=== PATIENT | female | born 2000 | race Caucasian/White ===

== ENCOUNTER → 2023-03-31 11:05 | Outpatient (BNVA) | payer SELFPAY | PROVIDERS: PCP Nurse Practitioner Family; Visit Provider Nurse Practitioner Family | DX: N92.6 Irregular menstruation, unspecified (principal) | CPT/HCPCS: 81025 ==

== ENCOUNTER 2023-10-04 13:17 | Emergency (ER) | payer OTHER, MEDICAID, SELFPAY ==
[2023-10-04 13:34] VITALS: BP 159/104; PULSE 92; RESP 16; TEMP 36.6; O2SAT 98; BMI 50.2
--- NOTE | 2023-10-04 13:53 | XRR_ITS ---
PROCEDURE INFORMATION: Exam: XR Right Finger(s) Exam date and time: 10/04/2023 2:28 PM Age: 22 years old Clinical indication: Injury or trauma; Patient HX: RT 2nd digit pain/swelling after jamming injury TECHNIQUE: Imaging protocol: Radiologic exam of the right fingers. Views: Minimum 2 views. COMPARISON: No relevant prior studies available. FINDINGS: Bones/joints: Normal. Soft tissues: Unremarkable. XR/XR finger RT min 2V [id number] IMPRESSION: No acute findings.
--- NOTE | 2023-10-04 16:26 | W.ED.EXTPRO ---
HPI - Extremity Problem General: Chief complaint: Extremity Injury, Lower Stated complaint: right pointer finger pain Time Seen by Provider: 10/04/23 16:26 History of Present Illness: 22-year-old female presents emerged part with complaints of right index finger. She states she accidentally fell forward hitting her hand onto the countertop earlier today. She states that it started swelling and bruising and is throbbing and having 4 out of 10 pain. She denies numbness or tingling to the extremity. She denies any other injuries. She states she is approximately 8 months , but is not having any other difficulties.. Review of Systems Musc: Reports: extremity pain and extremity swelling PFS ED PFSH: Family History Other Asthma Diabetes Hyperlipidemia Hypertension Social History Smoking and tobacco/nicotine status: former use of tobacco/nicotine Alcohol intake: never Physical Exam Narrative: EXAM NARRATIVE: Constitutional: the patient appears well nourished and of normal development. Vital signs as documented. No acute distress at present. Alert and oriented-to person, place, time and situation. Head, eyes, ears, nose, mouth, throat: Normocephalic, atraumatic. Pupils-equal, round, reactive to light. No scleral icterus. Normal-appearing external ears. Normal appearing nasal turbinates, no drainage. Neck: Supple, trachea is midline, no lymphadenopathy. Lungs: clear to auscultation to all lung de le[place]. Symmetrical rise and fall of chest, no obvious signs of increased work of breathing at present. Cardiac: Regular rate and rhythm, positive S1, S2. No murmurs, rubs or gallops that I can appreciate Abdomen: Soft, non-tender to palpation, normal active bowel sounds to all quadrants. No palpable masses, no organomegaly and abdominal bruits. Extremities: 2+ pulses in the upper extremities that are equal bilaterally, 2+ pulses in the lower extremities that are equal bilaterally. Non-edematous. Moves all extremities well, sensation to all extremities are noted. Right index finger with mild bruising noted there is some mild swelling noted. Patient is able to flex and extend at with minimal pain. Capillary refills less than 3 seconds. Skin: Warm, dry, intact. Course Vital Signs: Vital signs: Vital Signs Temperature 97.8 F 10/04/23 13:34 Pulse Rate 92 10/04/23 13:34 Respiratory Rate 16 10/04/23 13:34 Blood Pressure 159/104 10/04/23 13:34 Pulse Oximetry 98 10/04/23 13:34 Oxygen Delivery Me thod Room Air 10/04/23 13:34 MDM - Extremity (Nontraumatic) Medical Decision Making 22-year-old female presents with right index finger pain after jamming it into a countertop. I will provide her with radiographic examination and have advised her regarding rest ice compression elevation. Medical Records I reviewed the patient's medical records. Lab Data Radiology Impressions Finger X-Ray 10/04/23 13:53 IMPRESSION: No acute findings. All radiology interpretation(s) finalized by discharge Discharge Plan Discharge Patient Disposition: Home Clinical Impression: Finger sprain Condition: Stable Prescriptions: No Action No Known Home Medications Discharge Orders: Discharge ED (Routine); Ordered 10/04/23 Ordered By: Ty Worthy Referrals: Nga Brandon NP [Primary Care Provider] - Discharge Diet: Advance as tolerated Discharge Activity: Resume usual activity Patient Instructions: Opioid Safety, Pain Management Activity Restrictions/Additional Instructions: Activity Restrictions/Additional Instructions: Thank you for choosing [facility] [place] for your healthcare needs today. Please realize that you were seen in the Emergency Department and that we are providing you with an emergency medical screening exam and this may not be a complete and all inclusive of all the testing and or medical work-up that you may need to determine your ailment or severity of your illness. It is very important that you follow-up as instructed with your Primary care provider or Specialist for additional evaluation and to discuss your medical treatment plan. You may return to the Emergency Department should you have concerns or if your condition changes or worsens in any way. Coding Level of Care Code ED [employer] for [employer] Richard
== END 2023-10-04 16:35 | disposition home or self-care (01) ==
PROVIDERS: Emergency Provider Internal Medicine; PCP Nurse Practitioner Family
DX: S63.610A Unspecified sprain of right index finger, initial encounter (principal); Z87.891 Personal history of nicotine dependence; W18.39XA Other fall on same level, initial encounter
CPT/HCPCS: 73140; 99283

== ENCOUNTER 2023-10-13 13:04 | Outpatient (CLI) | payer OTHER, MEDICAID, SELFPAY ==
[2023-10-13 13:20] VITALS: BP 167/76; PULSE 90; TEMP 35.7
[2023-10-13 13:23] VITALS: RESP 17
[2023-10-13 13:25] VITALS: BMI 53.6
[2023-10-13 13:34] VITALS: BP 153/73; PULSE 87; RESP 17
[2023-10-13 13:49] VITALS: BP 125/71; PULSE 85
[2023-10-13 13:53] VITALS: BP 125/71; PULSE 85
== END 2023-10-13 13:53 | disposition home or self-care (01) ==
LOC: OPOB 13:07 → OBGYN 13:08
PROVIDERS: PCP Nurse Practitioner Family; Visit Provider Family Medicine
DX: O16.9 Unspecified maternal hypertension, unspecified trimester (principal); Z3A.00 Weeks of gestation of pregnancy not specified
CPT/HCPCS: 59025; 99211

== ENCOUNTER 2023-10-16 14:32 | Outpatient (CLI) | payer OTHER, MEDICAID, SELFPAY ==
[2023-10-16 14:32] VITALS: RESP 17; BMI 53.5
[2023-10-16 14:44] VITALS: BP 127/77; PULSE 103
[2023-10-16 14:59] VITALS: BP 135/88; PULSE 85
== END 2023-10-16 15:10 | disposition home or self-care (01) ==
LOC: OPOB 14:33 → OBGYN 14:34
PROVIDERS: PCP Nurse Practitioner Family; Visit Provider Family Medicine
DX: O26.899 Other specified pregnancy related conditions, unspecified trimester (principal); Z3A.00 Weeks of gestation of pregnancy not specified
CPT/HCPCS: 59025

== ENCOUNTER 2023-10-20 14:27 | Outpatient (CLI) | payer OTHER, MEDICAID, SELFPAY ==
[2023-10-20 14:38] VITALS: BP 169/95; PULSE 86
[2023-10-20 14:54] VITALS: BP 163/89; PULSE 82
[2023-10-20 15:01] VITALS: BP 158/82; PULSE 93
[2023-10-20 15:08] VITALS: BP 153/67; PULSE 86
[2023-10-20 15:23] VITALS: BP 152/71; PULSE 96
== END 2023-10-20 15:30 | disposition home or self-care (01) ==
LOC: OPOB 14:27 → OBGYN 14:28
PROVIDERS: PCP Nurse Practitioner Family; Visit Provider Family Medicine
DX: O16.9 Unspecified maternal hypertension, unspecified trimester (principal); Z3A.00 Weeks of gestation of pregnancy not specified
CPT/HCPCS: 59025

== ENCOUNTER 2023-10-23 14:08 | Outpatient (CLI) | payer OTHER, MEDICAID, SELFPAY ==
[2023-10-23 14:16] VITALS: BP 176/91; PULSE 93
[2023-10-23 14:30] VITALS: BP 171/89; PULSE 95
[2023-10-23 14:46] VITALS: BP 166/88; PULSE 98
[2023-10-23 15:09] LABS: Basophils % 0.2 %; Eosinophils # 0.1 10^3/uL (0.0-0.8); Eosinophils % 0.8 %; Hematocrit 40.4 % (36-47); Lymphocytes # 1.8 10^3/uL (0.8-4.8); Lymphocytes % 15.8 %; Mean Corpuscular HGB Conc 32.2 g/dL (30-55); Mean Corpuscular Hemoglobin 28.7 pg (27-33); Mean Corpuscular Volume 89.2 fl (85-98); Mean Platelet Volume 9.9 fL (7.4-10.4); Monocytes # 0.7 10^3/uL (0.2-0.9); Monocytes % 6.1 %; Neutrophils # 8.62 10^3/uL (1.8-7.7); Neutrophils % 76.7 %; Nucleated Red Blood Cells % 0 %; Platelet Count 330 10^3/cmm (157-399); Red Blood Count 4.53 10^6/uL (3.85-5.65); White Blood Count 11.24 10^3/uL (3.29-11.43)
[2023-10-23 15:20] VITALS: BMI 53.6
[2023-10-23 15:26] LABS: Alanine Aminotransferase 11 U/L (0-33); Albumin Level 3.6 g/dL (3.5-5.2); Alkaline Phosphatase 64 U/L (35-105); Blood Urea Nitrogen 10 mg/dL (6-20); Carbon Dioxide 23 mmol/L (22-29); Chloride 101 mmol/L (98-107); Globulin 3.3 g/dL (1.3-4.6); Glomerular Filtration Rate 126.2 mL/min (90-130); Glucose 83 mg/dL (65-115); Osmolality Calculated 278 mOsm/kg (285-295); Sodium 135 mmol/L (136-145); Total Bilirubin 0.2 mg/dL (0.15-1.2); Total Protein 6.9 g/dL (6.6-8.7); Uric Acid 4.6 mg/dL (2.4-5.7)
[2023-10-23 15:30] VITALS: BP 147/89; PULSE 97
[2023-10-23 15:32] LABS: Anion Gap 15.4 (5-19); Aspartate Amino Transferase 19 U/L (0-32); Potassium 4.4 mmol/L (3.5-5.1)
[2023-10-23 15:35] LABS: Urine Creatinine 75 mg/dL (28-217); Urine Protein Random 6 mg/dL
[2023-10-23 15:38] LABS: UPRO/UCREAT Ratio 0.08 mg/mg CR
[2023-10-23 15:45] VITALS: BP 154/99; PULSE 94
[2023-10-23 15:52] LABS: Add Urine Microscopic? YES; Bilirubin Urine Neg (Negative); Blood Urine Neg (Negative); Glucose Urine UA Norm (Normal); Ketones Urine Negative (Negative); Leukocyte Esterase Urine 1+ (Negative); Nitrate Urine Negative (Negative); Protein Urine Neg (Negative); Urine Appearance Hazy (CLEAR); Urine Color Yellow (Yellow); Urobilinogen Urine Norm (Negative); pH Urine 7 (5-7)
[2023-10-23 15:53] LABS: Add Urine Culture? No; Bacteria Urine 2+ /hpf; RBC Urine 0-4 /hpf (0-2); Squamous Epithelial Cell Urine 15-25 /hpf (0-5)
[2023-10-23 16:01] VITALS: BP 160/81; PULSE 97
== END 2023-10-23 16:17 | disposition home or self-care (01) ==
LOC: OPOB 14:09 → OBGYN 14:09
PROVIDERS: PCP Nurse Practitioner Family; Visit Provider Family Medicine
DX: O16.9 Unspecified maternal hypertension, unspecified trimester (principal); Z3A.00 Weeks of gestation of pregnancy not specified
CPT/HCPCS: 36415; 59025; 80053; 81001; 82570; 84156; 84550; 85025; 99211

== ENCOUNTER 2023-10-26 12:13 | Outpatient (CLI) | payer OTHER, MEDICAID, SELFPAY ==
[2023-10-26 12:29] VITALS: BP 184/85; PULSE 100
[2023-10-26 12:50] VITALS: BP 199/95; PULSE 96
[2023-10-26 13:59] VITALS: BP 182/89; PULSE 97
[2023-10-26 14:21] VITALS: BP 183/115; PULSE 91
[2023-10-26] MEDS: metoprolol tartrate 25 mg Tablet 100 MG PO (14:22)
[2023-10-26 15:09] VITALS: BP 143/94; PULSE 79
== END 2023-10-26 16:10 | disposition home or self-care (01) ==
LOC: OPOB 12:14 → OBGYN 12:19
PROVIDERS: PCP Nurse Practitioner Family; Visit Provider Family Medicine
DX: O26.899 Other specified pregnancy related conditions, unspecified trimester (principal); Z3A.00 Weeks of gestation of pregnancy not specified
CPT/HCPCS: 59025

== ENCOUNTER 2023-10-26 23:42 | Outpatient (CLI) | payer OTHER, MEDICAID, SELFPAY ==
[2023-10-26 23:53] VITALS: BP 143/87; PULSE 95
[2023-10-27] VITALS: BMI 54.8
[2023-10-27 00:04] VITALS: TEMP 35.9
[2023-10-27 00:05] VITALS: BP 130/64; PULSE 83
== END 2023-10-27 00:23 | disposition home or self-care (01) ==
LOC: OPOB 23:43 → OBGYN 23:44
PROVIDERS: PCP Nurse Practitioner Family; Visit Provider Family Medicine
DX: O16.9 Unspecified maternal hypertension, unspecified trimester (principal); Z3A.00 Weeks of gestation of pregnancy not specified
CPT/HCPCS: 59025; 99211

== ENCOUNTER 2023-10-30 13:50 | Outpatient (CLI) | payer MEDICAID, SELFPAY ==
[2023-10-30 14:03] VITALS: BP 145/87; PULSE 107
[2023-10-30 14:19] VITALS: BP 153/74; PULSE 93
[2023-10-30 14:20] VITALS: BMI 54.6
== END 2023-10-30 14:27 | disposition home or self-care (01) ==
LOC: OPOB 13:53 → OBGYN 13:53
PROVIDERS: PCP Nurse Practitioner Family; Visit Provider Family Medicine
DX: O16.9 Unspecified maternal hypertension, unspecified trimester (principal); Z3A.00 Weeks of gestation of pregnancy not specified
CPT/HCPCS: 59025; 99211

== ENCOUNTER 2023-11-03 14:23 | Outpatient (CLI) | payer MEDICAID, SELFPAY ==
[2023-11-03 14:49] VITALS: BP 175/91; PULSE 106
[2023-11-03 15:08] VITALS: BP 139/81; PULSE 96
[2023-11-03 15:15] LABS: Add Urine Microscopic? NO; Charge for UA Resulting for Rev
[2023-11-03 15:21] LABS: Basophils % 0.2 %; Eosinophils # 0.1 10^3/uL (0.0-0.8); Eosinophils % 1.3 %; Hematocrit 36.1 % (36-47); Lymphocytes # 1.7 10^3/uL (0.8-4.8); Lymphocytes % 16.9 %; Mean Platelet Volume 9.8 fL (7.4-10.4); Monocytes # 0.5 10^3/uL (0.2-0.9); Monocytes % 5.1 %; Neutrophils # 7.83 10^3/uL (1.8-7.7); Nucleated Red Blood Cells % 0 %; Platelet Count 317 10^3/cmm (157-399); White Blood Count 10.29 10^3/uL (3.29-11.43)
[2023-11-03 15:23] LABS: Urine Appearance Clear (CLEAR); Urine Color Light yellow (Yellow)
[2023-11-03 15:24] LABS: Bilirubin Urine Neg (Negative); Blood Urine Neg (Negative); Glucose Urine UA Norm (Normal); Ketones Urine Negative (Negative); Leukocyte Esterase Urine Negative (Negative); Nitrate Urine Negative (Negative); Protein Urine Neg (Negative); Specific Gravity, Urine 1.015 (1.005-1.030); Urobilinogen Urine Norm (Negative); pH Urine 6 (5-7)
[2023-11-03 15:28] VITALS: BP 134/75; PULSE 90
[2023-11-03 15:41] LABS: Alanine Aminotransferase 6 U/L (0-33); Albumin Level 3.4 g/dL (3.5-5.2); Alkaline Phosphatase 72 U/L (35-105); Anion Gap 16.3 (5-19); Aspartate Amino Transferase 11 U/L (0-32); Blood Urea Nitrogen 7 mg/dL (6-20); Calcium 8.6 mg/dL (8.5-10.5); Carbon Dioxide 20 mmol/L (22-29); Chloride 103 mmol/L (98-107); Globulin 3.1 g/dL (1.3-4.6); Glomerular Filtration Rate 155.7 mL/min (90-130); Glucose 105 mg/dL (65-115); Osmolality Calculated 278 mOsm/kg (285-295); Potassium 4.3 mmol/L (3.5-5.1); Sodium 135 mmol/L (136-145); Total Bilirubin 0.2 mg/dL (0.15-1.2); Total Protein 6.5 g/dL (6.6-8.7); Uric Acid 4.7 mg/dL (2.4-5.7)
[2023-11-03 15:42] LABS: Urine Creatinine 52 mg/dL (28-217); Urine Protein Random 5 mg/dL
[2023-11-03 15:48] VITALS: BP 131/75; PULSE 84
[2023-11-03 16:10] VITALS: BP 131/75; PULSE 84
== END 2023-11-03 16:10 | disposition home or self-care (01) ==
LOC: OPOB 14:26 → OBGYN 14:33
PROVIDERS: PCP Nurse Practitioner Family; Visit Provider Family Medicine
DX: O16.9 Unspecified maternal hypertension, unspecified trimester (principal); Z3A.00 Weeks of gestation of pregnancy not specified
CPT/HCPCS: 36415; 59025; 80053; 81003; 82570; 84156; 84550; 85025; 99211

== ENCOUNTER 2023-11-06 13:43 | Outpatient (CLI) | payer MEDICAID, SELFPAY ==
[2023-11-06] VITALS (11 sets, daily range): BP systolic 134–217; BP diastolic 80–104; PULSE 84–107; RESP 18; BMI 54.5
[2023-11-06 14:50] LABS: Add Urine Microscopic? NO; Charge for UA Resulting for Rev
[2023-11-06 15:12] LABS: Basophils % 0.3 %; Eosinophils # 0.1 10^3/uL (0.0-0.8); Eosinophils % 1.1 %; Hematocrit 36.8 % (36-47); Lymphocytes # 1.8 10^3/uL (0.8-4.8); Lymphocytes % 17.2 %; Mean Corpuscular HGB Conc 32.6 g/dL (30-55); Mean Corpuscular Hemoglobin 28.6 pg (27-33); Mean Corpuscular Volume 87.8 fl (85-98); Mean Platelet Volume 10.1 fL (7.4-10.4); Monocytes # 0.6 10^3/uL (0.2-0.9); Monocytes % 5.2 %; Neutrophils # 8.11 10^3/uL (1.8-7.7); Neutrophils % 75.6 %; Nucleated Red Blood Cells % 0 %; Platelet Count 330 10^3/cmm (157-399); Red Blood Count 4.19 10^6/uL (3.85-5.65); Red Cell Distribution Width 13.1 % (12.1-15.1); White Blood Count 10.72 10^3/uL (3.29-11.43)
[2023-11-06 15:26] LABS: Urine Appearance Clear (CLEAR); Urine Color Yellow (Yellow)
[2023-11-06 15:27] LABS: Bilirubin Urine Neg (Negative); Blood Urine Neg (Negative); Glucose Urine UA Norm (Normal); Ketones Urine Negative (Negative); Leukocyte Esterase Urine Negative (Negative); Nitrate Urine Negative (Negative); Protein Urine Neg (Negative); Urobilinogen Urine Norm (Negative); pH Urine 7 (5-7)
[2023-11-06 15:36] LABS: Alanine Aminotransferase 10 U/L (0-33); Albumin Level 3.5 g/dL (3.5-5.2); Alkaline Phosphatase 76 U/L (35-105); Anion Gap 16.5 (5-19); Aspartate Amino Transferase 13 U/L (0-32); Blood Urea Nitrogen 8 mg/dL (6-20); Calcium 9.4 mg/dL (8.5-10.5); Carbon Dioxide 22 mmol/L (22-29); Chloride 103 mmol/L (98-107); Globulin 3.1 g/dL (1.3-4.6); Glomerular Filtration Rate 155.7 mL/min (90-130); Glucose 87 mg/dL (65-115); Osmolality Calculated 282 mOsm/kg (285-295); Potassium 4.5 mmol/L (3.5-5.1); Sodium 137 mmol/L (136-145); Total Bilirubin 0.2 mg/dL (0.15-1.2); Total Protein 6.6 g/dL (6.6-8.7); Uric Acid 4.9 mg/dL (2.4-5.7)
[2023-11-06 16:08] LABS: UPRO/UCREAT Ratio 0.13 mg/mg CR; Urine Creatinine 77 mg/dL (28-217); Urine Protein Random 10 mg/dL
== END 2023-11-06 16:55 | disposition home or self-care (01) ==
LOC: OPOB 13:46 → OBGYN 13:47
PROVIDERS: Family Medicine; PCP Nurse Practitioner Family; Visit Provider Family Medicine
DX: O16.9 Unspecified maternal hypertension, unspecified trimester (principal); Z3A.00 Weeks of gestation of pregnancy not specified
CPT/HCPCS: 36415; 59025; 80053; 81003; 82570; 84156; 84550; 85025; 99211

== ENCOUNTER 2023-11-09 13:30 | Outpatient (CLI) | payer MEDICAID, SELFPAY ==
[2023-11-09 13:42] VITALS: RESP 16
[2023-11-09 13:43] VITALS: BP 148/84; PULSE 91
[2023-11-09 13:59] VITALS: BP 167/89; PULSE 95; BMI 53.2
[2023-11-09 14:03] VITALS: RESP 16
== END 2023-11-09 14:05 ==
LOC: OPOB 13:33 → OBGYN 13:33
PROVIDERS: PCP Nurse Practitioner Family; Visit Provider Family Medicine
DX: O16.9 Unspecified maternal hypertension, unspecified trimester (principal); Z3A.00 Weeks of gestation of pregnancy not specified
CPT/HCPCS: 59025

== ENCOUNTER 2023-11-11 21:06 | Inpatient (IN) | payer MEDICAID, SELFPAY ==
[2023-11-11 20:55] VITALS: BP 142/70; PULSE 103
[2023-11-11 20:56] VITALS: TEMP 36
[2023-11-11 21:13] VITALS: BMI 53.4
[2023-11-11 21:19] LABS: Basophils % 0.2 %; Eosinophils # 0.1 10^3/uL (0.0-0.8); Hematocrit 35.2 % (36-47); Lymphocytes # 2.4 10^3/uL (0.8-4.8); Lymphocytes % 18.1 %; Mean Corpuscular Hemoglobin 28.6 pg (27-33); Mean Corpuscular Volume 86.9 fl (85-98); Mean Platelet Volume 10.3 fL (7.4-10.4); Monocytes # 0.6 10^3/uL (0.2-0.9); Monocytes % 4.6 %; Neutrophils # 9.84 10^3/uL (1.8-7.7); Neutrophils % 75.6 %; Nucleated Red Blood Cells % 0 %; Platelet Count 302 10^3/cmm (157-399); Red Blood Count 4.05 10^6/uL (3.85-5.65); White Blood Count 13.03 10^3/uL (3.29-11.43)
[2023-11-11 22:00] VITALS: BP 141/86; PULSE 95
[2023-11-11] MEDS: miSOPROStol 100 mcg tablet 25 MCG VAGINAL (22:04)
[2023-11-11 22:30] VITALS: BP 137/66; PULSE 83
[2023-11-11 23:01] VITALS: BP 132/65; PULSE 82
[2023-11-12] VITALS (61 sets, daily range): BP systolic 128–186; BP diastolic 66–124; PULSE 77–118; TEMP 35.7–36.4; O2SAT 97–98
[2023-11-12] MEDS: dextrose 5%-lactated ringers 1,000 ML 999 ML IV ×3 (05:05→18:56)
[2023-11-12] MEDS: miSOPROStol 100 mcg tablet 25 MCG VAGINAL (07:14)
[2023-11-12] MEDS: oxytocin 30 UNIT/500 ML BAG IV (11:45)
--- NOTE | 2023-11-12 13:46 | P.ANESASSM_ITS ---
Pre-Anesthetic Assessment Height/Weight: Height 1.78 m Weight 168.736 kg Temp Pulse BP Pulse Ox O2 Del Method 96.4 F L 92 143/88 97 Room Air 11/12/23 11:17 11/12/23 13:33 11/12/23 13:33 11/12/23 05:03 11/12/23 02:48 Epidural Familial anesthetic complications: None Was Beta Rachna taken within 24 hours: N/A Was Clonidine taken within 24 hours: N/A Social No alcohol and No tobacco Exam alert, oriented x 3, clear to auscultation bilaterally and regular rate & rhythm Airway Submandibular: within normal limits (TMJ) Cervical ROM: within normal limits Mallampati: Class III Dentition: full History/ROS No significant history except as noted and No significant complaints Pulmonary Sleep Apnea CV/HEM Hypertension None reported Hepatic None reported GI Gastroesophageal Reflux Disease Metabolic Morbid Obesity Musc/skel Lower Back Pain Sciatica Neuropsych Headache Anesthetic Plan ASA status: 3 Anesthesia: Anesthesia Evaluation, General and Regional (specify below) (Epidural) Risk of > 500 ml blood loss (7ml/kg in children): No Medications/Allergies Home Medications Medication Instructions Recorded Confirmed Last Taken Type vits no.124-ferrous fum 1 tab PO DAILY 10/13/23 11/09/23 11/06/23 07:00 History 27 mg iron-folic acid 800 mcg tablet ( Vitamin) nifedipine 30 mg tablet,extended 30 mg PO DAILY 10/26/23 11/09/23 11/06/23 07:00 History release 24 hr Allergies Allergy/AdvReac Type Severity Reaction Status Date / Time latex Allergy Unknown Verified 11/06/23 15:12 Current Medications Generic Name Dose Route Start Last Admin Trade Name Freq PRN Reason Stop Dose Admin Dextrose/Lactated Ringer's 1,000 mls @ 125 mls/hr 11/11/23 21:15 11/12/23 11:47 Dextrose 5%-Lactated Ringers IV 999 mls/hr .Q8H LADARIUS Administration Oxytocin 30 unit in 500 mls @ 1 mls/hr 11/12/23 11:30 11/12/23 12:45 Pitocin IV 10 milliunit/min .Q24H LADARIUS 10 mls/hr Titration Protocol 1 MILLIUNIT/MIN PFSH Anesthesia Family History Other Asthma Diabetes Hyperlipidemia Hypertension Social History Smoking and tobacco/nicotine status: former use of tobacco/nicotine Alcohol intake: never Female Reproductive History : 1 Data Anesthesia 11/11/23 20:30 Short CBC 11/11/23 Range/Units 20:30 WBC 13.03 H (3.29-11.43) 10^3/uL Hgb 11.60 (11.27-16.99) g/dL Hct 35.2 L (36-47) % MCV 86.9 (85-98) fl Plt Count 302 (157-399) 10^3/cmm Neut % (Auto) 75.6 % Neut # (Auto) 9.84 H (1.8-7.7) 10^3/uL Blood Bank 11/11/23 20:30 Blood Type A Positive Rho(D) Type Rh positive Antibody Screen Negative Cardiac Studies: 2 No Data to Display
[2023-11-12] MEDS: lactated ringers 1,000 ML 999 ML IV (20:00)
[2023-11-12] MEDS: ROPivacaine syringe 100 MG/50 ML SYRINGE 10 MG EPIDURAL (22:00)
--- NOTE | 2023-11-12 22:05 | ANES.PROC ---
Anesthesia Procedures Procedure/Date: 11/12/23 Epidural: Time Out Performed: Yes Consents Signed: Procedure Consent and NPO Consent Consent: requested by attending/covering physician, from patient, risks and benefits reviewed and patient agrees to proceed Lumbar Level: L3-L4 Epidural position: sitting Epidural procedure: sterile prep of area (betadine), 1% lidocaine to numb the area (3 mLs), neg for paresthesia, test dose given, 1.5% xylocaine 1:200k epi (3 mL/2 mL), 0.2% Ropivacaine bolus ml (5 mLs), placed PCEA, no systemic response, sterile dressing applied, L.U.D. no apparent complications and 0.2% Ropiavacaine @ mls/hr (10 mLs/hr) Additional Comments: Attempt x3. FATOUMATA 7cm, catheter threaded to 12.5cm. 100mcg fentanyl given via epidural
--- NOTE | 2023-11-12 23:52 | PC.NURSE ---
This nurse began shift at 1900. Pitocin running at 18 mls/hr at this time.
[2023-11-13] VITALS (40 sets, daily range): BP systolic 116–185; BP diastolic 66–111; PULSE 78–125; RESP 16; TEMP 36.7–36.9; O2SAT 97–98
[2023-11-13] MEDS: ROPivacaine syringe 100 MG/50 ML SYRINGE 10 MG EPIDURAL ×2 (01:32→05:07)
[2023-11-13] MEDS: dextrose 5%-lactated ringers 1,000 ML 125 ML IV (04:09)
[2023-11-13] MEDS: oxytocin 30 UNIT/500 ML BAG 600 UNIT IV (06:14)
--- NOTE | 2023-11-13 06:35 | PM.OPHPUD ---
Labor & Delivery H&P Update Date of Procedure: November 12, 2023 Date H&P Performed: 11/10/23 Admission Diagnosis: IUP at 39w2d CHTN suspected macrosomia Planned procedure: Induction of labor and delivery
--- NOTE | 2023-11-13 06:36 | P.PCNOB_ITS ---
Delivery Note: Date of delivery: November 13, 2023 Estimated blood loss (mL): 300 Pre-Delivery Course: The patient had routine care at [facility]. Her was complicated by likely pre-existing nontreated chronic hypertension as well as whitecoat syndrome and morbid obesity. Her blood pressures were intermittently 140s over 90s that she did not require any antihypertensive medication until the third trimester. She was monitored closely with twice weekly NSTs and growth ultrasounds. Her 36-week ultrasound estimated weight at greater than the 99th percentile. She had a repeat ultrasound around 39 weeks with estimated weight around 4000 g. labs: Blood type a positive antibody negative, hepatitis B nonreactive, hepatitis C nonreactive, HIV nonreactive, rubella nonimmune, GC chlamydia negative, RPR nonreactive, UDS negative, she passed her glucose tolerance test, she was GBS negative. Delivery: This is a 23-year-old G1, P0 at 39 weeks 3 days gestation who was admitted for induction secondary to chronic hypertension. Her cervix was not favorable so she was started on Cytotec and received 2 doses. She then underwent artificial rupture of membranes with clear fluids. She received an epidural for pain management. She took a a while to thin out but once her cervix was nice and then she dilated abruptly. She only had to push through about 3 contractions to have a normal spontaneous vaginal delivery of a viable male weight 3510 g, 7 pounds 12 ounces, Apgars 9 and 9 over an intact perineum. The was suctioned at delivery and placed on the mother's chest. The cord was clamped and cut. There was a true knot in the cord. The placenta was delivered grossly intact and normal to inspection. There was a second-degree perineal laceration that was sutured using 3-0 chromic. Mother and infant were doing well after delivery. Estimated blood loss 300 mL Coding Level of Care Code Acute Code for Chg Fwd
[2023-11-13] MEDS: lanolin oint 7 gm 1 APPLIC TOPICAL (08:20)
[2023-11-13] MEDS: docusate sodium 100 mg Capsule PO ×2 (08:20→16:08)
[2023-11-13] MEDS: prenatal vitamin Capsule 1 CAP PO (08:20)
[2023-11-13] MEDS: ibuprofen 800 mg tablet PO ×3 (08:20→22:05)
[2023-11-13] MEDS: benzocaine-menthol 78 gm Canister 1 SPRAY TOPICAL (08:21)
[2023-11-13] MEDS: NIFEdipine ER (24 hr) 30 mg Tablet PO (12:19)
[2023-11-13 18:43] LABS: Hematocrit 33.1 % (36-47); Mean Corpuscular HGB Conc 33.2 g/dL (30-55); Mean Corpuscular Hemoglobin 28.9 pg (27-33); Mean Corpuscular Volume 87.1 fl (85-98); Platelet Count 267 10^3/cmm (157-399); Red Cell Distribution Width 13.2 % (12.1-15.1); White Blood Count 15.11 10^3/uL (3.29-11.43)
[2023-11-14 04:40] VITALS: BP 149/92; PULSE 93; RESP 16; TEMP 36.8; O2SAT 98
--- NOTE | 2023-11-14 08:53 | ANE.PACU2 ---
Inpatient post-anesthesia follow up: Airway intact: Yes Vital signs: Temperature 98.2 F Pulse Rate 93 Respiratory Rate 16 Blood Pressure 149/92 Pulse Oximetry 98 Oxygen Delivery Me thod Room Air Oxygen Flow Rate Fraction of Inspir ed Oxygen Hydration adequate: Yes Nausea and vomiting: No Pain level: 1 Mental status: Baseline Epidural Start/End: Epidural Start Date: 11/12/23 Epidural Start Time: 21:00 Epidural End Date: 11/13/23 Epidural End Time: 08:00
[2023-11-14] MEDS: prenatal vitamin Capsule 1 CAP PO (09:40)
[2023-11-14] MEDS: NIFEdipine ER (24 hr) 30 mg Tablet 60 MG PO (09:40)
[2023-11-14] MEDS: ibuprofen 800 mg tablet PO (09:40)
[2023-11-14 09:42] VITALS: BP 150/86; PULSE 85; RESP 18; TEMP 36.7; O2SAT 97
--- NOTE | 2023-11-14 12:43 | P.DS_ITS ---
Discharge Providers Date of Admission: 11/11/23 21:06 Date of Discharge: November 14, 2023 Attending Provider at Admission: Rachael Donato MD Attending Provider at Discharge: Rachael Donato MD Primary Care Provider: Nga Brandon NP Reason for Visit Reason for Visit: induction Hospital Course Hospital Course This is a 23-year-old G1 now P1 who was admitted for induction at 39 weeks 2 days gestation secondary to chronic hypertension. The patient's was also complicated by morbid obesity. She was on nifedipine 30 mg XL daily. She had a normal spontaneous vaginal delivery of a viable male . Apgars were 9 and 9. Mother and infant did well after delivery. She did have some severely elevated blood pressures and was restarted on her nifedipine XL 30 mg daily. On the day of discharge she was ambulating, tolerating a regular diet, had decreased vaginal bleeding and was comfortable with discharge home. Physical Exam Narrative: Sitting in bed holding the , heart regular rate and rhythm, lungs clear to auscultation bilaterally, abdomen is soft and nontender, fundus is firm, extremities have 2+ edema but no calf tenderness. Urinary Catheter Management: Rios Latex Free: Cath Placed During This Visit: yes, but has since been removed by the nurse Reason for Continuing Indwelling Catheter: Decision to DC Catheter Urinary Catheter Date of Insertion: 11/12/23 Urinary Catheter Time of Insertion: 22:30 Date Urinary Catheter Removed: 11/13/23 Time Urinary Catheter Discontinued: 05:45 Discharge Data Studies Completed and Pending Laboratory Results WBC 15.11 10^3/uL (3.29-11.43) H 11/13/23 18:28 RBC 3.80 10^6/uL (3.85-5.65) L 11/13/23 18:28 Hgb 11.00 g/dL (11.27-16.99) L 11/13/23 18:28 Hct 33.1 % (36-47) L 11/13/23 18:28 MCV 87.1 fl (85-98) 11/13/23 18:28 MCH 28.9 pg (27-33) 11/13/23 18:28 MCHC 33.2 g/dL (30-55) 11/13/23 18:28 RDW 13.2 % (12.1-15.1) 11/13/23 18:28 Plt Count 267 10^3/cmm (157-399) 11/13/23 18:28 MPV 10.0 fL (7.4-10.4) 11/13/23 18:28 Neut % (Auto) 75.6 % 11/11/23 20:30 Lymph % (Auto) 18.1 % 11/11/23 20:30 [place] % (Auto) 4.6 % 11/11/23 20:30 Eos % (Auto) 1.0 % 11/11/23 20:30 Baso % (Auto) 0.2 % 11/11/23 20:30 Neut # (Auto) 9.84 10^3/uL (1.8-7.7) H 11/11/23 20:30 Lymph # (Auto) 2.4 10^3/uL (0.8-4.8) 11/11/23 20:30 [place] # (Auto) 0.6 10^3/uL (0.2-0.9) 11/11/23 20:30 Eos # (Auto) 0.1 10^3/uL (0.0-0.8) 11/11/23 20:30 Baso # (Auto) 0.0 10^3/uL (0.0-0.1) 11/11/23 20: Nucleated RBC % (auto) 0 % 11/11/23 20: Nucleated RBCs # 0.0 /100WBC 11/11/23 20:30 Blood Type A Positive 11/11/23 20:30 Rho(D) Type Rh positive 11/11/23 20:30 Antibody Screen Negative 11/11/23 20:30 Vitals Last Vital Signs Temp 98.0 F 11/14/23 09:42 Pulse 85 11/14/23 09:42 Resp 18 11/14/23 09:42 BP 150/86 11/14/23 09:42 Pulse Ox 97 11/14/23 09:42 O2 Del Method Room Air 11/14/23 09:42 Discharge Plan Discharge Patient Disposition: Home Condition: Stable Prescriptions: Continued Vitamin 27 mg iron- 800 mcg Tablet 1 tab PO DAILY nifedipine 30 mg Tablet Extended Release 24hr 30 mg PO DAILY Discharge Orders: Discharge Order (Routine); Ordered 11/14/23 Ordered By: Rachael Donato Referrals: Rachael Donato MD [Physician] - 1 week Discharge Diet: Usual diet Discharge Activity: Limit activity as instructed Patient Instructions: Opioid Safety Activity Restrictions/Additional Instructions: Nothing per vagina for 6 weeks. Discharge Attestations Time Spent in Discharge Care*: less than 30 min Quality Metrics Clinical Quality Measures [ No reported AMI, CVA or VTE this stay] Coding Level of Care Code Acute Code for Chg Fwd
[2023-11-14 15:15] VITALS: BP 137/87; PULSE 82; RESP 18; TEMP 36.6; O2SAT 98
== END 2023-11-14 15:24 | disposition home or self-care (01) | DRG 807 ==
LOC: OPOB 21:07 → OBGYN 21:07
PROVIDERS: Admitting Provider Family Medicine; PCP Nurse Practitioner Family; Visit Provider Family Medicine
DX: O10.02 Pre-existing essential hypertension complicating childbirth (principal); Z37.0 Single live birth; Z3A.39 39 weeks gestation of pregnancy; O99.214 Obesity complicating childbirth; E66.01 Morbid (severe) obesity due to excess calories; O69.2XX0 Labor and delivery complicated by other cord entanglement, with compression, not applicable or unspecified; O70.1 Second degree perineal laceration during delivery
CPT/HCPCS: 36415; 51702; 59025; 59409; 85025; 85027; 86850; 86900; 96374; 98960; 99211; J2590; J2795; J3010; J7120; J7121